=== PATIENT | female | born 1945 | race Caucasian/White ===

== ENCOUNTER 2017-10-16 20:32 | Emergency (ER) | payer OTHER, BC ==
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
[2017-10-17 01:24] VITALS: BMI 26.6
[2017-10-17 01:50] VITALS: BP 155/89; PULSE 68; TEMP 98
== END 2017-10-17 00:55 | disposition short-term general hospital (02) ==
LOC: JER 20:32
DX: Z04.41 Encounter for examination and observation following alleged adult rape (principal); I10 Essential (primary) hypertension; E78.5 Hyperlipidemia, unspecified; E11.9 Type 2 diabetes mellitus without complications; Z79.4 Long term (current) use of insulin; Z87.820 Personal history of traumatic brain injury; Z93.1 Gastrostomy status; Z93.0 Tracheostomy status; Z79.01 Long term (current) use of anticoagulants; Z79.82 Long term (current) use of aspirin; Z90.01 Acquired absence of eye
CPT/HCPCS: 99282-25